=== PATIENT | female | born 1935 | race Caucasian/White ===

== ENCOUNTER → 2016-10-31 | Outpatient (CLI) | payer MEDICARE | LOC: RAD 11:47 | DX: Z01.818 Encounter for other preprocedural examination (principal) | CPT/HCPCS: 71020 ==

== ENCOUNTER → 2016-11-10 | Outpatient (CLI) | payer MEDICARE | LOC: KOH-I 15:56 | DX: R10.9 Unspecified abdominal pain (principal); R31.9 Hematuria, unspecified; Z88.8 Allergy status to other drugs, medicaments and biological substances | CPT/HCPCS: 74176 ==

== ENCOUNTER → 2020-09-18 | Outpatient (CLI) | payer MEDICARE ==
[~2020-09-18] MED LIST: ACCUPRIL40 MG PO; ASPIR 8181 MG PO; CARDIZEM CD240 MG PO; CITRACAL-VIT D1 EAC1 PO; CLEOCIN HCL300 MG PO; COREG12.5 MG PO; CRESTOR10 MG PO; CYANOCOBAL1000 MCG/1 INJ; FISH OIL 1,0001 EACH PO; FLOVENT DISKUS50 MCG; HYDROCHLOROTHIA25 MG PO; LEVOTHYROXINE50 MCG PO; PLAVIX75 MG PO; PROAIR HFA8.5 GM NEB; PROTONIX40 MG PO; SINGULAIR10 MG PO; TYLENOL 500 MG500 MG PO; VITAMIN D2000 UNIT PO; ZYRTEC10 M3 PO
== END ==
LOC: RAD 12:33
DX: I49.5 Sick sinus syndrome (principal); I50.30 Unspecified diastolic (congestive) heart failure; R53.83 Other fatigue
CPT/HCPCS: 71046

== ENCOUNTER → 2020-09-22 | Outpatient (CLI) | payer MEDICARE | LOC: CATH 07:13 | DX: Z45.010 Encounter for checking and testing of cardiac pacemaker pulse generator [battery] (principal); I49.5 Sick sinus syndrome; I11.0 Hypertensive heart disease with heart failure; I50.9 Heart failure, unspecified; I25.10 Atherosclerotic heart disease of native coronary artery without angina pectoris; I07.1 Rheumatic tricuspid insufficiency; J90 Pleural effusion, not elsewhere classified; E03.9 Hypothyroidism, unspecified; K21.9 Gastro-esophageal reflux disease without esophagitis; D63.8 Anemia in other chronic diseases classified elsewhere; M19.90 Unspecified osteoarthritis, unspecified site; E78.5 Hyperlipidemia, unspecified; E87.6 Hypokalemia; J30.2 Other seasonal allergic rhinitis; Z79.899 Other long term (current) drug therapy; Z88.1 Allergy status to other antibiotic agents; Z88.8 Allergy status to other drugs, medicaments and biological substances; Z86.718 Personal history of other venous thrombosis and embolism; Z86.711 Personal history of pulmonary embolism | CPT/HCPCS: 33213; 99152; 99153; C1785; J2250; J3010; J3370; J7040; J7050 ==

== ENCOUNTER 2021-01-17 09:37 | Emergency (ER) | payer MEDICARE ==
[~2021-01-17 09:37] MED LIST changes: -PLAVIX75 MG PO
[2021-01-17] MEDS ORDERED: PLAVIX75 MG PO (14:31)
== END 2021-01-17 12:10 | disposition home or self-care (01) ==
LOC: ER1 09:37
DX: T84.021A Dislocation of internal left hip prosthesis, initial encounter (principal); Z20.822 Contact with and (suspected) exposure to COVID-19
CPT/HCPCS: 0240U; 27265; 73501; 73502; 76000; 99152; 99285; J1100; J2001; J2405; J2704; J3010; J7120

== ENCOUNTER → 2021-08-12 | Outpatient (CLI) | payer MEDICARE ==
[~2021-08-12] MED LIST changes: +PLAVIX75 MG PO
[2021-08-12 17:23] LABS: BORDETELLA PARAPERTUSSIS Not Detected (Not Detectd); BORDETELLA PERTUSSIS Not Detected (Not Detectd); CHLAMYDIA PNEUMONIAE Not Detected (Not Detectd); CORONAVIRUS HKU1 Not Detected (Not Detectd); CORONAVIRUS NL63 Not Detected (Not Detectd); CORONAVIRUS OC43 Not Detected (Not Detectd); CORONOAVIRUS 229E Not Detected (Not Detectd); HUMAN METAPNEUMOVIRUS Not Detected (Not Detectd); HUMAN RHINOVIRUS/ENTEROVIRUS Not Detected (Not Detectd); INFLUENZA A Not Detected (Not Detectd); INFLUENZA B Not Detected (Not Detectd); MYCOPLASMA PNEUMONIAE Not Detected (Not Detectd); PARAINFLUENZA VIRUS 1 Not Detected (Not Detectd); PARAINFLUENZA VIRUS 2 Not Detected (Not Detectd); PARAINFLUENZA VIRUS 3 Not Detected (Not Detectd); PARAINFLUENZA VIRUS 4 Not Detected (Not Detectd); RESPIRATORY SYNCYTIAL VIRUS Not Detected (Not Detectd)
[2021-08-12 19:22] LABS: SARS-CoV-2 NOT DETECTED (Not Detectd)
== END ==
LOC: RAD 16:01
PROVIDERS: Physician Assistant
DX: R05.9 Cough, unspecified (principal); Z20.822 Contact with and (suspected) exposure to COVID-19
CPT/HCPCS: 71046; 87633

== ENCOUNTER → 2022-02-28 | Outpatient (CLI) | payer MEDICARE | LOC: HEART 5 10:30 | DX: R01.1 Cardiac murmur, unspecified (principal); Z95.2 Presence of prosthetic heart valve; I08.1 Rheumatic disorders of both mitral and tricuspid valves | CPT/HCPCS: 93306 ==